=== PATIENT | female | born 1995 | race African-American/Black ===

== ENCOUNTER 2017-05-04 13:35 | Observation (INO) | payer MEDICAID ==
[2017-05-04 16:12] LABS: Urine RBC None Seen /hpf (0 - 4)
[2017-05-04 16:26] LABS: Urine Bilirubin Negative (Negative); Urine Blood Negative /uL (Negative); Urine Glucose Normal (Normal); Urine Ketone 3+ (Negative); Urine Mucus FEW (None Seen); Urine Nitrite Negative (Negative); Urine Squamous Epithelial Cell FEW /hpf (<5); Urine Urobilinogen Normal (Negative); Urine pH 6.5 (5.0-8.0)
[2017-05-04 16:27] LABS: Urine Color Yellow (Yellow)
[2017-05-05] MEDS ORDERED: PREN-153 OR (09:09)
== END 2017-05-04 16:33 | disposition home or self-care (01) | DRG 566 ==
LOC: LDRP 13:35
PROVIDERS: ADMIT Obstetrics & Gynecology; ATTEND Obstetrics & Gynecology
DX: O62.9 Abnormality of forces of labor, unspecified (principal); Z3A.39 39 weeks gestation of pregnancy
CPT/HCPCS: 59025; 76818; 80307; 81001; 81002; G0378

== ENCOUNTER 2017-05-05 08:10 | Observation (INO) | payer MEDICAID ==
[2017-05-05] MEDS ORDERED: PREN-153 OR (09:09)
== END 2017-05-05 10:25 | disposition home or self-care (01) | DRG 566 ==
LOC: LDRP 08:10
PROVIDERS: ADMIT Specialist; ATTEND Specialist
DX: O62.9 Abnormality of forces of labor, unspecified (principal); Z3A.40 40 weeks gestation of pregnancy
CPT/HCPCS: 59025; 81002; G0378

== ENCOUNTER 2017-07-23 14:42 | Observation (INO) | payer MEDICAID ==
[~2017-07-23] VITALS: Ht 177.8 cm; Wt 86.2 kg
[~2017-07-23 14:42] MED LIST: PREN-153 OR
[2017-07-23 19:25] LABS: Basophils # (auto) 0 uL; Basophils % (auto) 0.2 % (0.0-2.0); Eosinophils # (auto) 0 uL; Hematocrit 43.6 % (36.0-46.0); Hemoglobin 14.6 g/dL (12.2-16.2); Lymphocytes # (auto) 0.4 uL; Lymphocytes % (auto) 2.5 % (10.0-50.0); Mean Corpuscular Hemoglobin 32.6 pg (28.0-32.0); Mean Corpuscular Hgb Conc. 33.4 g/dL (32.0-36.0); Mean Corpuscular Volume 97.6 fL (80.0-100.0); Monocytes # (auto) 0.4 uL; Monocytes % (auto) 2.4 % (0.0-12.0); Neutrophils # (auto) 14.5 uL; Neutrophils % (auto) 94.9 % (37.0-80.0); Platelet Count (auto) 267 10^3/uL (140-450); Red Blood Cells 4.47 10^6/uL (4.0-5.20); Red Cell Distribution Width 14.1 % (11.8-14.3); White Blood Cell 15.3 10^3/uL (4.4-10.8)
[2017-07-23 19:46] LABS: Albumin 3.4 g/dL (3.4-5.0); BUN/Creatinine Ratio 7.2; Calcium 8.7 mg/dL (8.5-10.1)
[2017-07-23 19:49] LABS: Bilirubin, Total 1.6 mg/dL (0.2-1.0); Total Protein 7.6 g/dL (6.4-8.2)
[2017-07-23] MEDS ORDERED: SODIUM CHLORIDE 0.9% 1,000 ML IVB ONE (21:24)
[2017-07-23] MEDS ORDERED: ONDANSETRON HCL 4 MG/2 ML VIAL IV ONE (21:30)
[2017-07-23 23:59] VITALS: BP 118/79
== END 2017-07-24 03:15 | disposition home or self-care (01) | DRG 251 ==
LOC: EDBD 14:42 → ER 14:42 → OVERFLOW 21:27 → ER 07-24 03:15
PROVIDERS: ADMIT Family Medicine; ATTEND Family Medicine
DX: R10.84 Generalized abdominal pain (principal); F17.210 Nicotine dependence, cigarettes, uncomplicated; R11.2 Nausea with vomiting, unspecified; Z82.49 Family history of ischemic heart disease and other diseases of the circulatory system
CPT/HCPCS: 36415; 71045; 74176; 80053; 82150; 83690; 83735; 84702; 85025; 96361; 96374; 99285; G0378; 96365; 96366; 96375; 99291